=== PATIENT | female | born 1955 | race Caucasian/White ===

== ENCOUNTER 2020-02-08 02:11 | Inpatient (IN) | payer BC, SELFPAY ==
[2020-02-08] MEDS ORDERED: levETIRAcetam 500 MG/5 ML VIAL (KEPPRA IV)(J1953) ONE (05:05)
[2020-02-08] MEDS ORDERED: levETIRAcetam 500 MG/5 ML VIAL (KEPPRA IV)(J1953) As Ordered ONE (05:05)
[2020-02-08] MEDS ORDERED: POTASSIUM CHLORIDE 10 MEQ SR TABLET As Ordered ONE (08:28)
[2020-02-08] MEDS ORDERED: POTASSIUM CHLORIDE 10 MEQ SR TABLET ONE (08:28)
[2020-02-08] MEDS ORDERED: THIAMINE 100 MG TAB ONE (11:11)
[2020-02-08] MEDS ORDERED: ENOXAPARIN 30MG/0.3ML SYRINGE (J1650 PER 10MG) ONE (11:11)
[2020-02-08] MEDS ORDERED: SENNA 8.6 MG TAB (SENOKOT) ONE (11:11)
[2020-02-08] MEDS ORDERED: PANTOPRAZOLE 40MG TAB (PROTONIX) ONE (11:11)
[2020-02-08] MEDS ORDERED: MULTIVITAMINS/MINERALS THERAP 1 TAB ONE (11:11)
[2020-02-08] MEDS ORDERED: FOLIC ACID 1 MG TAB ONE (11:11)
[2020-02-08] MEDS ORDERED: DULoxetine 30 MG CAP (CYMBALTA) ONE (13:02)
[2020-02-08] MEDS ORDERED: METOPROLOL SUCC (TopROL XL) 50MG **XL** TAB ONE (13:02)
[2020-02-08] MEDS ORDERED: HumaLOG INSULIN (NovoLOG) PER UNIT ONE (13:02)
[2020-02-08] MEDS ORDERED: levETIRAcetam 250MG TABLET (KEPPRA) ONE (17:31)
[2020-02-08] MEDS ORDERED: SENOKOT S TAB ONE (20:58)
[2020-02-08] MEDS ORDERED: RAMELTEON 8 MG TAB (ROZEREM) ONE (20:58)
[2020-02-08] MEDS ORDERED: ATORVASTATIN 20 MG TAB ONE (20:58)
[2020-02-09] MEDS ORDERED: levETIRAcetam 250MG TABLET (KEPPRA) ONE ×3 (06:11→16:48)
[2020-02-09] MEDS ORDERED: SENOKOT S TAB ONE (08:17)
[2020-02-09] MEDS ORDERED: MULTIVITAMINS/MINERALS THERAP 1 TAB ONE (08:17)
[2020-02-09] MEDS ORDERED: FOLIC ACID 1 MG TAB ONE (08:18)
[2020-02-09] MEDS ORDERED: THIAMINE 100 MG TAB ONE (08:18)
[2020-02-09] MEDS ORDERED: ENOXAPARIN 40MG/0.4ML SYRINGE (J1650 PER 10MG) ONE (08:18)
[2020-02-09] MEDS ORDERED: DULoxetine 30 MG CAP (CYMBALTA) ONE (08:18)
[2020-02-09] MEDS ORDERED: PANTOPRAZOLE 40MG TAB (PROTONIX) ONE (08:18)
[2020-02-09] MEDS ORDERED: METOPROLOL SUCC (TopROL XL) 50MG **XL** TAB ONE (08:18)
[2020-02-09] MEDS ORDERED: ATORVASTATIN 20 MG TAB ONE (20:45)
[2020-02-09] MEDS ORDERED: RAMELTEON 8 MG TAB (ROZEREM) ONE (20:45)
[2020-02-10] MEDS ORDERED: levETIRAcetam 250MG TABLET (KEPPRA) ONE (05:50)
[2020-02-10] MEDS ORDERED: FOLIC ACID 1 MG TAB ONE (09:00)
[2020-02-10] MEDS ORDERED: MULTIVITAMINS/MINERALS THERAP 1 TAB ONE (09:00)
[2020-02-10] MEDS ORDERED: ENOXAPARIN 30MG/0.3ML SYRINGE (J1650 PER 10MG) ONE (09:00)
[2020-02-10] MEDS ORDERED: POTASSIUM CHLORIDE 10 MEQ SR TABLET ONE (09:00)
[2020-02-10] MEDS ORDERED: METOPROLOL SUCC (TopROL XL) 50MG **XL** TAB ONE (09:00)
[2020-02-10] MEDS ORDERED: DULoxetine 30 MG CAP (CYMBALTA) ONE (09:00)
[2020-02-10] MEDS ORDERED: PANTOPRAZOLE 40MG TAB (PROTONIX) ONE (09:00)
[2020-02-10] MEDS ORDERED: THIAMINE 100 MG TAB ONE (09:00)
[2020-02-28 17:15] LABS: MAGNESIUM LEVEL 1.9 MG/DL (1.8-2.4); PROLACTIN 4.1 NG/ML; TROPONIN I < 0.02 NG/ML (< 0.10)
[2020-02-28 17:21] LABS: HEMOGLOBIN A1c 5.3 %
[2020-02-28 20:33] LABS: BLOOD UREA NITROGEN 10 MG/DL (7-18); CALCIUM LEVEL 8.5 MG/DL (8.8-10.2); CARBON DIOXIDE LEVEL 29 MEQ/L (21-32); CHLORIDE LEVEL 107 MEQ/L (98-107); CREATININE FOR GFR 0.77 MG/DL (0.55-1.30); GLOMERULAR FILTRATION RATE > 60.0 (>45); GLUCOSE, FASTING 109 MG/DL (70-100); MAGNESIUM LEVEL 1.9 MG/DL (1.8-2.4); PHOSPHORUS LEVEL 2.6 MG/DL (2.5-4.9); POTASSIUM SERUM 3.4 MEQ/L (3.5-5.1); SODIUM LEVEL 142 MEQ/L (136-145)
[2020-03-09 13:20] LABS: HEMATOCRIT 40.6 % (36.0-47.0); HEMOGLOBIN 13.4 g/dl (12.0-15.5); PLATELET COUNT, AUTOMATED 297 10^3/uL (150-450); RED BLOOD COUNT 4.32 10^6/uL (4.00-5.40)
[2020-03-09 13:21] LABS: BASO % 0.3 % (0.0-1.0); EOS # 0.3 10^3/uL (0.0-0.5); EOS % 2.9 % (0.0-3.0); LYMPH # 3.8 10^3/uL (1.5-5.0); LYMPH % 42.2 % (24.0-44.0); MONO # 0.6 10^3/uL (0.0-0.8); MONO % 6.2 % (0.0-5.0); NEUTROPHILS # 4.3 10^3/uL (1.5-8.5); NEUTROPHILS % 47.8 % (36.0-66.0)
--- NOTE | 2020-03-12 15:40 | ECGEPIP ---
SINUS RHYTHM DELAYED R WAVE PROGRESSION NONSPECIFIC ST & T CHANGES NO PRIOR DUE TO DOWNTIME SEE SCANNED DOWNTIME REPORT MTDD
[2020-03-14 21:21] LABS: BASO % 0.5 % (0.0-1.0); EOS # 0.2 10^3/uL (0.0-0.5); HEMATOCRIT 37.5 % (36.0-47.0); HEMOGLOBIN 12.6 g/dl (12.0-15.5); LYMPH # 3.6 10^3/uL (1.5-5.0); LYMPH % 40.7 % (24.0-44.0); MEAN CORPUSCULAR HGB CONC 33.6 g/dl (32.0-36.5); MEAN CORPUSCULAR VOLUME 95.2 fl (80.0-96.0); MONO # 0.6 10^3/uL (0.0-0.8); MONO % 6.2 % (0.0-5.0); NEUTROPHILS # 4.4 10^3/uL (1.5-8.5); NEUTROPHILS % 50.1 % (36.0-66.0); PLATELET COUNT, AUTOMATED 259 10^3/uL (150-450); RED BLOOD COUNT 3.94 10^6/uL (4.00-5.40); WHITE BLOOD COUNT 8.8 10^3/uL (4.0-10.0)
[2020-03-22 20:05] LABS: HEMATOCRIT 35.9 % (36.0-47.0); HEMOGLOBIN 12.1 g/dl (12.0-15.5); MEAN CORPUSCULAR HEMOGLOBIN 31.6 pg (27.0-33.0); MEAN CORPUSCULAR HGB CONC 33.7 g/dl (32.0-36.5); MEAN CORPUSCULAR VOLUME 93.7 fl (80.0-96.0); PLATELET COUNT, AUTOMATED 242 10^3/uL (150-450); RED BLOOD COUNT 3.83 10^6/uL (4.00-5.40); WHITE BLOOD COUNT 11.8 10^3/uL (4.0-10.0)
--- NOTE | 2020-03-29 15:10 | EEG ---
DATE: 02/10/2020 DIAGNOSIS: Syncope, seizure. EEG# [id number]. REFERRING PHYSICIAN: Marcella Vora MD HISTORY: Patient is a 64-year-old woman who had a possible seizure at night. This EEG was done to rule out epileptic potential. She is currently taking metoprolol, Cymbalta, atorvastatin, losartan, metformin, etc. TECHNICAL DESCRIPTION: This baseline EEG was recorded by a 21-scalp, ear, and two EKG electrodes and was reviewed in bipolar and referential montages following reformatting in 10-20 international electrode placement system. INTERPRETATION: Patient was noted to be in awake and drowsy states during this EEG. Resting and awake background rhythm consisted of well-formed posterior dominant rhythm with anterior-posterior gradient comprising of 9 Hz alpha activity measuring 15-40 microvolts in amplitude, which was symmetric and reactive to eye opening. Attenuation of posterior dominant rhythm was seen during transition to drowsiness. No sleep was achieved. Infrequent left mid temporal wicket waves were noted during drowsiness. Hyperventilation and photic stimulation remained unremarkable. EKG revealed normal sinus rhythm. No focal, lateralizing, or epileptiform abnormalities were seen. No relevant clinical activity was noted. CONCLUSION: This EEG in awake and drowsy states is within normal limits. MTDD
[2020-05-02 08:12] LABS: BLOOD UREA NITROGEN 8 MG/DL (7-18); CALCIUM LEVEL 8.4 MG/DL (8.8-10.2); CARBON DIOXIDE LEVEL 30 MEQ/L (21-32); CHLORIDE LEVEL 110 MEQ/L (98-107); CREATININE FOR GFR 0.64 MG/DL (0.55-1.30); GLOMERULAR FILTRATION RATE > 60.0 (>45); GLUCOSE, FASTING 91 MG/DL (70-100); POTASSIUM SERUM 3.8 MEQ/L (3.5-5.1); SODIUM LEVEL 143 MEQ/L (136-145)
== END 2020-02-10 14:00 | disposition home or self-care (01) | DRG 53 ==
LOC: M ED 02:11 → M MS5PR 08:35
PROVIDERS: ADMIT Internal Medicine Nephrology; ATTEND Internal Medicine Nephrology
DX: R56.9 Unspecified convulsions (principal); E87.2 Acidosis; I95.9 Hypotension, unspecified; E87.6 Hypokalemia; E11.9 Type 2 diabetes mellitus without complications; E78.5 Hyperlipidemia, unspecified; I10 Essential (primary) hypertension; K21.9 Gastro-esophageal reflux disease without esophagitis; R55 Syncope and collapse; F10.10 Alcohol abuse, uncomplicated; Z95.0 Presence of cardiac pacemaker; Z79.899 Other long term (current) drug therapy